=== PATIENT | female | born 1990 | race American Indian/Alaskan Native ===

== ENCOUNTER 2017-10-07 14:18 | Inpatient (IN) | payer MEDICAID ==
[2017-10-07] MEDS ORDERED: Sodium Chloride 0.9% 10 ML Syringe FLUSH PRN ×2 (14:30→15:12)
[2017-10-07] MEDS ORDERED: Carboprost Tromethamine 250 MCG/1 ML Amp IM PRN (14:30)
[2017-10-07] MEDS ORDERED: Acetaminophen 325 MG Tab PO PRN (14:30)
[2017-10-07] MEDS ORDERED: Misoprostol 400 MCG (4 X 100 MCG TAB) RECTAL PRN (14:30)
[2017-10-07] MEDS ORDERED: Ondansetron 4 MG/2 ML SDV IV PRN (14:30)
[2017-10-07] MEDS ORDERED: Methylergonovine 0.2 MG/1 ML Amp IM PRN (14:30)
[2017-10-07] MEDS ORDERED: Tranexamic Acid 1,000 MG in Sodium Chloride 0.9% 100 ML IV PRN (14:30)
[2017-10-07] MEDS ORDERED: Lactated Ringers 1,000 ML IV SCH (14:30)
[2017-10-07] MEDS ORDERED: Lidocaine 1% 30 ML SDV INJECT PRN (14:30)
[2017-10-07] MEDS ORDERED: Lactated Ringers 500 ML IV ONE (14:30)
[2017-10-07] MEDS ORDERED: Bupivacaine 0.75%/D5W 2 ML Amp ONE (14:54)
[2017-10-07] MEDS ORDERED: fentaNYL 100 MCG/2 ML SDV ONE (14:54)
[2017-10-07] MEDS ORDERED: Oxytocin/Normal Saline 30 UNIT/500 ML BAG ONE (15:03)
[2017-10-07] MEDS ORDERED: Oxytocin 10 Units/1 ML SDV IM PRN (15:12)
[2017-10-07] MEDS ORDERED: Benzocaine/Menthol 20%-0.5% Spray 56 GM Canister TOP PRN (15:12)
[2017-10-07] MEDS ORDERED: Simethicone 80 MG Tab.Chew PO PRN (15:12)
[2017-10-07] MEDS ORDERED: Zolpidem 5 MG Tab PO PRN (15:12)
[2017-10-07] MEDS ORDERED: Oxytocin/Normal Saline 30 UNIT/500 ML BAG IV SCH (16:15)
[2017-10-07] MEDS: Docusate Sodium 100 MG Cap PO PRN (17:16)
[2017-10-07] MEDS: Ibuprofen 800 MG Tab PO PRN (17:16)
--- NOTE | 2017-10-08 07:18 | HP ---
PATIENT IDENTIFICATION: Mini Walker is a 27-year-old, G2, P1-0-0-1, intrauterine at 37 weeks confirmed with 21 and 6/7 weeks' ultrasound, who presents with contractions and vaginal bleeding. HISTORY OF PRESENT ILLNESS: The patient states that between 7:00 and 8:00 a.m. on date of admission, she was awoken with some vaginal bleeding enough to the point that it was like a period. Associated with this has been some lower abdominal pain and cramps, and she states that she started having contractions on average every 10 minutes felt in the lower abdomen, rated 7 to 8/10 on the pain scale that began to get worse over time and nothing seems to make them better. To put this in context, she was evaluated yesterday and was found to be around 3 cm dilated with a very ripe cervix. She is GBS negative. Records were called for, reviewed as below, and supplemented by patient history. OB HISTORY: On 09/06/2015; 39 and 1/7 weeks' female with a vacuum assisted vaginal delivery, weighing 2693 g. ANTEPARTUM LABS: ABO blood type A positive, negative antibody. Rubella immune. Syphilis antibody is nonreactive. Negative hepatitis B surface antigen. Negative hep C, HIV, GC, and Chlamydia. Wet prep within normal limits. One- hour GTT was 126. Last hemoglobin was 13 with platelets 423 on 09/07/2017. GBS was negative on 09/23/2017. 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 for remainder of her and patient has been on this. ALLERGIES: None. MEDICATIONS: 1. Acyclovir 400 mg t.i.d. 2. vitamins. PAST MEDICAL/PAST SURGICAL HISTORY: Otherwise reviewed and felt to be noncontributory. FAMILY HISTORY: Diabetes in father. Negative family history of defects, multiple births, anesthesia problems, bleeding problems, or heart disease. SOCIAL HISTORY: Lives in [place] by herself and with her daughter. She does smoke. No alcohol or drug use elicited. REVIEW OF SYSTEMS: Quickly obtained, otherwise as above, and otherwise felt to be noncontributory. Denies any fever, chills, sweats, problems with bowel or bladder otherwise. OBJECTIVE: Vital Signs: To be obtained. heart tones in the 140s to 150s with a quick look on the strip. Appearance: Female appears stated age, acting appropriate. Nontoxic appearance. Breathing through contractions, but answers questions appropriately in between. HEENT: Head is atraumatic. EOMs intact. PERRLA. No scleral icterus. No otorrhinorrhea. Mucous membranes are moist. Neck: No obvious tenderness. Lungs: Clear to auscultation bilaterally. No increased work of breathing. Heart: S1 and S2. Regular rate and rhythm. Abdomen: Gravid, Haider's indeterminate. Nontender and nondistended. Bowel sounds positive. No other organomegaly, pulsatile masses, or obvious hernias. No rebound, rigidity, or guarding on monitors applied. Genitourinary: Normal external female genitalia. Normal position and presentation of the urethra. Vaginal exam reveals her to be 8 to 9 cm, 100% effaced, and 0 station. Bulging bag of water noted, vertex suspected. Extremities: No peripheral edema. Deep tendon reflexes 2/4 bilaterally and symmetric in lower extremities. Psychiatric: Mood and affect are congruent. Judgment and insight are intact. Skin: Without any cyanosis, clubbing, or jaundice. ASSESSMENT AND PLAN: 1. Intrauterine at 37 weeks, confirmed with 21 and 6/7 weeks' ultrasound. 2. Active labor with advanced cervical dilation. 3. Group B Streptococcus negative. 4. History of herpes simplex virus 1 and 2, antibody tests positive, currently on suppression with patient denying any symptoms of herpes and no herpes lesions seen with exam today. 5. G2, P1-0-0-1. PLAN: The patient will be admitted as soon as possible to the OB room. Labs have been called for in a stat fashion. The patient is requesting intrathecal. We will try to attempt to get her one and proceed from there. I did discuss with patient that due to her advanced cervical dilation, we may not be able to get her intrathecal in time, but we will try our best at this point in time. She is to notify us if she has an urge to push or bag of water breaks as anticipated rapid delivery thereafter. The patient understands and agrees with the above treatment plan. [facility] /[id number]
--- NOTE | 2017-10-08 07:21 | OBOUT ---
DATE: 10/07/2017 DATE AND TIME OF NST: Date: 10/07/2017. Time: 1426 hours to 1438 hours. REASON FOR NST: 1. Intrauterine at 37 weeks, confirmed with 21 and 6/7 week ultrasound. 2. Active labor with advanced cervical dilation. 3. Group B streptococcus negative. 4. History of HSV 1 and 2 antibody test positive, currently on suppressive therapy with no active lesions symptomatically or upon exam. 5. -0-0-1. NST INTERPRETATION: During this time period, tone baseline is approximately 130, and there are at least two 15 x 15 beats per minute accelerations, making this strip reactive. It is also noted to be reassuring. Tocometer reveals potential 6 contractions which the patient feels. Vitals during this time. Blood pressure 131/84, heart rate 92, temperature 97.3, and O2 sats 100% on room air. PLAN: Please see admit history and physical for further details. The patient is being admitted to an OB room stat as well as labs being called for stat and attempt for intrathecal to be done as soon as possible. I did discuss with the patient. She understands and agrees with the above treatment plan. [facility] /[id number]
--- NOTE | 2017-10-08 07:24 | DEL ---
DATE: 10/07/2017 PREOPERATIVE DIAGNOSES: 1. Intrauterine at 37 weeks, confirmed with 21 and 6/7 week ultrasound. 2. Active labor and advanced cervical dilation. 3. Group B Streptococcus negative. 4. History of HSV 1 and 2 antibody test positive. Currently on suppressive therapy. No evidence of lesions or symptoms of lesions. 5. G2, P1-0-0-1. POSTOPERATIVE DIAGNOSES: 1. Intrauterine at 37 weeks, confirmed with 21 and 6/7 week ultrasound., delivered. 2. Active labor and advanced cervical dilation 3. Group B Streptococcus negative. 4. History of HSV 1 and 2 antibody test positive. Currently on suppressive therapy. No evidence of lesions or symptoms of lesions. 5. G2, P1-0-0-1. 6. Precipitous delivery. 7. Placental abruption, suspected with old blood clot approximately 200 mL noted with delivery of placenta. PROCEDURE PERFORMED: NST followed by spontaneous vaginal delivery. ANESTHESIA/ANALGESIA: None. ESTIMATED BLOOD LOSS: 400 mL. FINDINGS: Male, scores pending, weight pending. SUMMARY OF EVENTS: The patient is a 27-year-old, G2, P1-0-0-1, intrauterine 37 weeks, confirmed with 21 and 6/7 week ultrasound, presented in active labor and advanced cervical dilation with some vaginal bleeding. She only describes pains with her contractions. During initial evaluation, she was found to be 8 to 9 cm. We called for stat labs, and attempt for stat intrathecal. She was subsequently set up for intrathecal and had spontaneous rupture membranes with urge to push. DESCRIPTION OF PROCEDURE: I was called to the room stat. Donned in sterile gown and gloves and with the next contraction with the patient pushing, vertex was delivered in STEPHAN presentation, followed by rest of the , anterior and posterior shoulder without difficulty. Mouth and nares were suctioned. Cord was doubly clamped and cut. The was handed over to the warmer. Then, approximately 10 mL cord blood obtained for labs. Placenta then delivered with gentle cord traction and fundal massage with an old blood clot noted with delivery of the placenta. Suspected abruption noted. Perineum, vagina, perirectal areas were then examined without any tears or lacerations. Mother and infant are currently stable at time of dictation. [facility] /[id number]
--- NOTE | 2017-10-08 07:27 | PN ---
DATE: 10/07/2017 day #1. SUBJECTIVE: The patient is tolerating p.o.'s, ambulating, urinating, and passing flatus. No immediate concerns were noted. OBJECTIVE: Vital Signs: Temperature 97.7, heart rate 82 to 86, blood pressure 119/67, and respiratory rate is 20. Appearance: Lying in the bed, answering questions appropriately. Lungs: Clear to auscultation bilaterally. Heart: S1, S2. Regular rate and rhythm. Abdomen: Firm uterus -1 below umbilicus. Extremities: No peripheral edema. No calf pain. LABORATORY DATA: White cell count 11.5, hemoglobin 12.1, and platelets 279. ASSESSMENT AND PLAN: day #1, status post spontaneous vaginal delivery that was precipitous with suspected placental abruption with blood clot noted with delivery. PLAN: The patient is stable. Vital signs are stable. We will continue to follow clinically and closely. Possible discharge tomorrow. Did discuss physicians covering in my absence over the weekend. [facility] /[id number]
[2017-10-08] MEDS: Ibuprofen 800 MG Tab PO PRN ×2 (08:22→20:46)
[2017-10-08] MEDS: Docusate Sodium 100 MG Cap PO PRN ×2 (08:23→20:46)
[2017-10-08] MEDS: Prenatal Multivitamin with Calcium/Folic Acid/Iron Tab PO SCH (08:23)
[2017-10-09] MEDS: Ibuprofen 800 MG Tab PO PRN (09:00)
[2017-10-09] MEDS: Prenatal Multivitamin with Calcium/Folic Acid/Iron Tab PO SCH (09:00)
[2017-10-09] MEDS: Docusate Sodium 100 MG Cap PO PRN (09:01)
[2017-10-09 09:09] VITALS: BP 118/66
--- NOTE | 2017-10-09 12:57 | DISCH ---
DATE: 10/09/2017 SUBJECTIVE: The patient is day #2 from a normal spontaneous vaginal delivery. This is her second child. Mom and baby are both doing well. Lochia is minimal. She has no complaints. OBJECTIVE: General: On physical exam, patient is afebrile. Heart rate 76 to 92, blood pressure 105 to 119 over 63 to 67, respiratory rate 16 to 20, O2 sat 97% to 98%. Abdomen: Fundus was firm below the umbilicus. Extremities: Have no tenderness. No edema. The patient's blood type is A positive. She is rubella immune. Hemoglobin predelivery was 14.0; postdelivery it is 12.1; white count is normal at 11.5; platelets 279. ASSESSMENT AND PLAN: day #2, status post vaginal delivery at term. Mom and baby were both doing well. We will discharge her to home. She will follow up with her primary OB in 6 weeks. [facility] /[id number]
== END 2017-10-10 00:50 | disposition home or self-care (01) | DRG 774 ==
LOC: DL.OBCHECK 14:18 → DL.OB 14:31 → OBSVTOIN 15:00 → DL.OB 15:00
PROVIDERS: ADMIT Family Medicine; ATTEND Family Medicine
PROC: 10E0XZZ Delivery of Products of Conception, External Approach (ICD-10-PCS; principal; 2017-10-07)
DX: O99.334 Smoking (tobacco) complicating childbirth (principal); O45.93 Premature separation of placenta, unspecified, third trimester; O62.3 Precipitate labor; O42.02 Full-term premature rupture of membranes, onset of labor within 24 hours of rupture; Z3A.37 37 weeks gestation of pregnancy; Z37.0 Single live birth
CPT/HCPCS: 36415; 59409; 85027; A9270-GY; J2590; J7120

== ENCOUNTER 2020-09-03 05:43 | Day surgery (SDC) | payer MEDICAID ==
[~2020-09-03 05:43] MED LIST: Sodium Chloride 0.9% 10 ML Syringe FLUSH PRN
[2020-09-03] MEDS ORDERED: Dextrose 5%-0.45% NaCl 1,000 ML IV SCH (06:00)
[2020-09-03] MEDS ORDERED: fentaNYL 100 MCG/2 ML SDV ONE (06:13)
[2020-09-03] MEDS ORDERED: Midazolam 1 MG/ML 2 ML SDV ONE (06:13)
[2020-09-03] MEDS ORDERED: fentaNYL 100 MCG/2 ML SDV IV ONE ×2 (06:53→06:54)
[2020-09-03] MEDS ORDERED: Midazolam 1 MG/ML 2 ML SDV IV ONE ×6 (06:54→07:02)
--- NOTE | 2020-09-03 08:11 | OR ---
DATE: 09/03/2020 PROCEDURE: Total colonoscopy. INSTRUMENT USED: PCF-H190DL Olympus video colonoscope. PREMEDICATIONS: Fentanyl 100 mcg intravenous, Versed 4 mg intravenous, nasal O2 cannula. The procedure was done under pulse oximetry, BP recording, and air sampling and monitoring. INDICATIONS: The patient with rectal bleeding, colonoscopic examination is done for detection of any polypoid lesions and removal, endoscopic hemostasis therapy if needed. DESCRIPTION OF PROCEDURE: Initial rectal exam was unremarkable. Rigid anoscopy was normal. The colonoscope was passed with ease up to the ileocecal area. Photographs were taken of the normal-appearing cecum identified by landmarks of appendiceal orifice and double-bulged ileocecal folds. No bleeding was noted from any of the visualized areas at the commencement of the examination. The bowel preparation was found to be adequate, Isabela scale 3 in all the regions, total score 9. No stricture. No vascular ectasia. No large isolated ulcerations seen. No evidence of diffuse inflammatory bowel disease in the form of friability, contact bleeding, or ulcerations. No polyp or tumor mass identified. Probing the proximal sides of folds and flexures using adequate distention and clearing up the stool material, withdrawal of the scope was made, cecum to rectum time over 6 minutes. No bleeding was noted from any of the visualized areas at the completion of examination. IMPRESSION: Normal study. The patient tolerated the procedure well. [facility] /[id number]
[2020-09-03 11:08] VITALS: BP 115/70; PULSE 55
== END 2020-09-03 09:16 | disposition home or self-care (01) ==
LOC: DL.ENDO 05:43
PROVIDERS: ATTEND Internal Medicine Gastroenterology
DX: K62.5 Hemorrhage of anus and rectum (principal); E66.09 Other obesity due to excess calories; Z68.27 Body mass index [BMI] 27.0-27.9, adult; Z91.09 Other allergy status, other than to drugs and biological substances; Z87.891 Personal history of nicotine dependence; Z90.79 Acquired absence of other genital organ(s); Z98.890 Other specified postprocedural states
CPT/HCPCS: 45378; J2250; J3010; J7042

== ENCOUNTER 2021-08-26 15:43 | Emergency (ER) | payer MEDICAID ==
[2021-08-26 16:09] VITALS: BP 125/75; PULSE 101
[2021-08-26 16:41] LABS: RESPIRATORY SYNCYTIAL VIR NAA NEGATIVE (NEGATIVE)
[2021-08-26 16:50] LABS: CORONAVIRUS COVID-19 NAA POSITIVE (NEGATIVE)
== END 2021-08-26 17:08 | disposition home or self-care (01) ==
LOC: DL.ED 15:43
DX: U07.1 COVID-19 (principal); J10.1 Influenza due to other identified influenza virus with other respiratory manifestations; E66.9 Obesity, unspecified; Z68.25 Body mass index [BMI] 25.0-25.9, adult; Z91.048 Other nonmedicinal substance allergy status; Z72.0 Tobacco use
CPT/HCPCS: 0241U; 99283

== ENCOUNTER 2021-09-30 08:43 | Emergency (ER) | payer MEDICAID ==
[2021-09-30 08:59] VITALS: BP 124/83; PULSE 109
== END 2021-09-30 09:07 | disposition home or self-care (01) ==
LOC: DL.ED 08:43
DX: S86.911A Strain of unspecified muscle(s) and tendon(s) at lower leg level, right leg, initial encounter (principal); E66.9 Obesity, unspecified; Z68.25 Body mass index [BMI] 25.0-25.9, adult; Z91.048 Other nonmedicinal substance allergy status
CPT/HCPCS: 99282; 99283

== ENCOUNTER 2021-10-12 01:04 | Emergency (ER) | payer MEDICAID ==
[2021-10-12] MEDS ORDERED: Ketamine 500 mg/10 ML MDV IV ONE (01:05)
[2021-10-12] MEDS ORDERED: Acetaminophen/HYDROcodone 325-10 MG Tab PO ONE (01:05)
[2021-10-12] MEDS ORDERED: Propofol 200 MG/20 ML SDV IV ONE (01:05)
[2021-10-12] MEDS ORDERED: Sodium Chloride 0.9% 1,000 ML IV ONE (01:42)
[2021-10-12] MEDS ORDERED: Acetaminophen/HYDROcodone 325-10 MG Tab ONE (02:08)
[2021-10-12 03:04] VITALS: BP 128/81; PULSE 84
== END 2021-10-12 03:25 | disposition home or self-care (01) ==
LOC: DL.ED 01:04
DX: S43.004A Unspecified dislocation of right shoulder joint, initial encounter (principal); E66.9 Obesity, unspecified; Z68.26 Body mass index [BMI] 26.0-26.9, adult; Z72.0 Tobacco use; Z91.048 Other nonmedicinal substance allergy status; V80.010A Animal-rider injured by fall from or being thrown from horse in noncollision accident, initial encounter; Y93.52 Activity, horseback riding
CPT/HCPCS: 23650; 73030-RT; 99283-25; A9270-GY; J2704; J3490; J7030

== ENCOUNTER 2021-10-15 11:48 | Emergency (ER) | payer MEDICAID ==
[2021-10-15 12:55] VITALS: BP 139/79; PULSE 87
== END 2021-10-15 12:52 | disposition home or self-care (01) ==
LOC: DL.ED 11:48
DX: S01.01XA Laceration without foreign body of scalp, initial encounter (principal); E66.9 Obesity, unspecified; Z72.0 Tobacco use; Z68.26 Body mass index [BMI] 26.0-26.9, adult; Z91.018 Allergy to other foods; Y04.0XXA Assault by unarmed brawl or fight, initial encounter
CPT/HCPCS: 12001; 99283; 99283-25

== ENCOUNTER 2022-09-23 15:34 | Emergency (ER) | payer MEDICAID ==
[2022-09-23 15:47] VITALS: BP 120/86; PULSE 74
== END 2022-09-23 16:00 | disposition home or self-care (01) ==
LOC: DL.ED 15:34
DX: H66.001 Acute suppurative otitis media without spontaneous rupture of ear drum, right ear (principal); E66.9 Obesity, unspecified; Z68.24 Body mass index [BMI] 24.0-24.9, adult; Z91.018 Allergy to other foods
CPT/HCPCS: 99282

== ENCOUNTER 2023-05-16 20:29 | Emergency (ER) | payer MEDICAID ==
[2023-05-16 20:54] VITALS: BP 149/97; PULSE 86
[2023-05-16] MEDS ORDERED: Cyclobenzaprine 10 MG Tab PO ONE (21:47)
== END 2023-05-16 23:34 | disposition home or self-care (01) ==
LOC: DL.ED 20:29
DX: S39.012A Strain of muscle, fascia and tendon of lower back, initial encounter (principal); E66.9 Obesity, unspecified; Z91.09 Other allergy status, other than to drugs and biological substances; Z68.25 Body mass index [BMI] 25.0-25.9, adult; W19.XXXA Unspecified fall, initial encounter
CPT/HCPCS: 72110; 99283; 99284; A9270-GY